=== PATIENT | female | born 1975 | race Two or more races ===

== ENCOUNTER 2018-05-19 10:08 | Outpatient (CLI) | payer OTHER | END 2018-05-19 10:14 | disposition home or self-care (01) | LOC: RX STUDY 10:08 | DX: N70.11 Chronic salpingitis (principal) ==

== ENCOUNTER 2021-11-06 09:15 | Outpatient (CLI) | payer OTHER | END 2021-11-06 09:18 | disposition home or self-care (01) | LOC: RX STUDY 09:15 | PROVIDERS: ATTEND Specialist | DX: N88.8 Other specified noninflammatory disorders of cervix uteri (principal) ==

== ENCOUNTER 2025-09-06 13:03 | Emergency (ER) | payer OTHER ==
[~2025-09-06] VITALS: Ht 149.9 cm; Wt 54.4 kg
[2025-09-06] MEDS ORDERED: NABUMETONE750 MG PO (13:17)
[2025-09-06] MEDS ORDERED: NORFLEX100MG PO (13:17)
[2025-09-06] MEDS ORDERED: 0.9 % SODIUM CHLORIDE 1,000 ML IV ONE (13:45)
[2025-09-06 15:16] LABS: BASO % 0.7 % (0.1-1.2); EOS # 0.10 (0.04-0.54); EOS % 1.8 % (0.7-7.0); LYMPH # 1.39 (1.18-3.74); LYMPH % 24.8 % (19.3-53.1); MEAN PLATELET VOLUME 9.50 fl (9.4-12.4); MONO # 0.48 (0.24-0.82); MONO % 8.6 % (4.7-12.5); NEUT # 3.58 (1.56-6.13); NEUT % 63.7 % (34.0-71.1); RED CELL DISTRIBUTION WIDTH 12.6 % (11.6-14.4)
[2025-09-06 15:21] LABS: URINE APPEARANCE Clear; URINE BILIRRUBIN Negative (NEGATIVE); URINE BLOOD Large; URINE COLOR Yellow; URINE GLUCOSE Negative (NEGATIVE); URINE KETONE 15 (NEGATIVE); URINE LEUKOCYTE Trace; URINE NITRATE Negative; URINE PROTEIN Trace (NEGATIVE); URINE UROBILINOGEN 0.2 E.U./dl
[2025-09-06 15:25] LABS: URINE BACTERIA 352.7 uL (0.0-1933); URINE EPITHELIAL CELLS 9.8 uL (0.0-38.8); URINE RBC 1424.5 uL (0.0-20.8); URINE WBC 10.0 uL (0.0-23.2)
[2025-09-06 15:47] LABS: ALT/SGPT 24.0 U/L (12-78); AST/SGOT 22.0 U/L (15-37); BILIRUBIN TOTAL 0.78 mg/dL (0.3-1.2); BILIRUBIN,CONJUGATED 0.14 mg/dL (0.0-0.2); BUN CREA RATIO 13.0 (7.0-25.0); CREATININE SERUM 0.77 mg/dL (0.55-1.02); GFR 80.01; GLUCOSE FASTING 92.0 mg/dL (65-100); OSMOLALITY SERUM 278.0 MOSM/KG (275-295); PHOSPHOKINASE CREATININE 102.0 U/L (26-192)
[2025-09-06 15:54] LABS: URINE CAST 0.14 uL (0.0-1.40)
[2025-09-06] MEDS ORDERED: CEFTRIAXONE SODIUM 1,000 MG VIAL IV ONE (23:00)
[2025-09-06] MEDS ORDERED: BACTRIM DS TAB1 EACH PO (23:09)
[2025-09-06] MEDS ORDERED: 8 HOUR650 MG PO (23:09)
== END 2025-09-06 23:47 | disposition home or self-care (01) ==
LOC: ER 13:04
PROVIDERS: Emergency Medicine
DX: R31.9 Hematuria, unspecified (principal); N30.90 Cystitis, unspecified without hematuria; R10.20 Pelvic and perineal pain unspecified side

== ENCOUNTER 2025-09-20 11:40 | Outpatient (CLI) | payer OTHER ==
[~2025-09-20 11:40] MED LIST: 8 HOUR650 MG PO; BACTRIM DS TAB1 EACH PO; NABUMETONE750 MG PO; NORFLEX100MG PO
== END 2025-09-20 11:43 | disposition home or self-care (01) ==
LOC: MRI 11:40
PROVIDERS: ATTEND Physical Medicine & Rehabilitation
DX: M54.2 Cervicalgia (principal)
CPT/HCPCS: 72141